=== PATIENT | male | born 1955 | race Caucasian/White ===

== ENCOUNTER 2016-04-27 06:44 | Day surgery (SDC) | payer BC ==
--- NOTE | ~2016-04-27 | EGD ---
EGD REPORT [facility] [address] [id number] NAME: SHAWN JEFFERSON : [birth year] STATUS : REG [facility]#: [id number] AGE: 61 ADM/REG DATE : 04/27/16 MR#: [id number] REPORT SERV DATE: 04/27/16 DICTATED BY: MIGUEL ÁNGEL LEOS DATE: 04/27/16 REPORT STATUS : Draft TRANSCRIBED BY: [facility] DATE: 04/27/16 Endoscopy Center Patient Name: Shawn Jefferson Date of : 1955 Attending MD: MIGUEL ÁNGEL LEOS MD Procedure Date No Time: 04/27/2016 Procedure: Colonoscopy Indications: Screening for colorectal malignant neoplasm Referring MD: JENNIFER GARCIA JR. Medicines: Propofol per Anesthesia Complications: No immediate complications. Procedure: Pre-Anesthesia Assessment: - ASA Grade Assessment: II - A patient with mild systemic disease. After I obtained informed consent, the scope was passed under direct vision. Throughout the procedure, the patient's blood pressure, pulse, and oxygen saturations were monitored continuously. The CF [id number] was introduced through the anus and advanced to the cecum, identified by appendiceal orifice and ileocecal valve. The colonoscopy was performed without difficulty. The patient tolerated the procedure well. The quality of the bowel preparation was good. Findings: The perianal and digital rectal examinations were normal. Many medium-mouthed diverticula were found in the recto-sigmoid colon and in the sigmoid colon. Internal hemorrhoids were found during retroflexion and were Grade I (internal hemorrhoids that do not prolapse). The rest of the colon was normal. Impression: - Diverticulosis in the recto-sigmoid colon and in the sigmoid colon. - Internal hemorrhoids. Recommendation: - Discharge patient to home (ambulatory). - Repeat colonoscopy in 5 years for surveillance. Procedure Code(s): --- Professional --- G0121, Colorectal cancer screening; colonoscopy on individual not meeting criteria for high risk Diagnosis Code(s): --- Professional --- K64.0, First degree hemorrhoids EGD REPORT [address] [address] NAME: SHAWN JEFFERSON : [birth year] STATUS : REG [facility]#: [id number] AGE: 61 ADM/REG DATE : 04/27/16 MR#: [id number] REPORT SERV DATE: 04/27/16 DICTATED BY: MIGUEL ÁNGEL LEOS. DATE: 04/27/16 REPORT STATUS : Draft TRANSCRIBED BY: [employer] DATE: 04/27/16 K57.30, Diverticulosis of large intestine without perforation or abscess without bleeding Z12.11, Encounter for screening for malignant neoplasm of colon CPT copyright 2013 [employer]. All rights reserved. The codes documented in this report are preliminary and upon station inspector review may be revised to meet current compliance requirements. Miguel Ángel Leos MD MIGUEL ÁNGEL LEOS MD 04/27/2016 8:55 AM This report has been signed electronically. Number of Addenda: 0 Note Initiated On: 04/27/2016 8:25 AM Scope Withdrawal Time 0 hours 9 minutes 37 seconds [address] [place] [address]
--- NOTE | ~2016-04-27 | EGD ---
EGD REPORT [facility] [address] [id number] NAME: SHAWN JEFFERSON : [birth year] STATUS : REG [facility]#: [id number] AGE: 61 ADM/REG DATE : 04/27/16 MR#: [id number] REPORT SERV DATE: 04/27/16 DICTATED BY: MIGUEL ÁNGEL LEOS DATE: 04/27/16 REPORT STATUS : Draft [facility]ANS[facility]IBED [facility]: [facility] DATE: 04/27/16 Endoscopy Center Patient Name: Shawn Jefferson Date of : 1955 Attending MD: MIGUEL ÁNGEL LEOS MD Procedure Date No Time: 04/27/2016 Procedure: Colonoscopy Indications: Screening for colorectal malignant neoplasm Referring MD: JENNIFER GARCIA JR. Medicines: Propofol per Anesthesia Complications: No immediate complications. Procedure: Pre-Anesthesia Assessment: - ASA Grade Assessment: II - A patient with mild systemic disease. After I obtained informed consent, the scope was passed under direct vision. Throughout the procedure, the patient's blood pressure, pulse, and oxygen saturations were monitored continuously. The CF [id number] was introduced through the anus and advanced to the cecum, identified by appendiceal orifice and ileocecal valve. The colonoscopy was performed without difficulty. The patient tolerated the procedure well. The quality of the bowel preparation was good. Findings: The perianal and digital rectal examinations were normal. Many medium-mouthed diverticula were found in the recto-sigmoid colon and in the sigmoid colon. Internal hemorrhoids were found during retroflexion and were Grade I (internal hemorrhoids that do not prolapse). The rest of the colon was normal. Impression: - Diverticulosis in the recto-sigmoid colon and in the sigmoid colon. - Internal hemorrhoids. Recommendation: - Discharge patient to home (ambulatory). - Repeat colonoscopy in 5 years for surveillance. Procedure Code(s): --- Professional --- G0121, Colorectal cancer screening; colonoscopy on individual not meeting criteria for high risk Diagnosis Code(s): --- Professional --- K64.0, First degree hemorrhoids EGD REPORT [address] [address] NAME: SHAWN JEFFERSON : [birth year] STATUS : REG [facility]#: [id number] AGE: 61 ADM/REG DATE : 04/27/16 MR#: [id number] REPORT SERV DATE: 04/27/16 DICTATED BY: MIGUEL ÁNGEL LEOS. DATE: 04/27/16 REPORT STATUS : Draft TRANSCRIBED BY: [employer] DATE: 04/27/16 K57.30, Diverticulosis of large intestine without perforation or abscess without bleeding Z12.11, Encounter for screening for malignant neoplasm of colon CPT copyright 2013 [employer]. All rights reserved. The codes documented in this report are preliminary and upon content editor review may be revised to meet current compliance requirements. Miguel Ángel Leos MD MIGUEL ÁNGEL LEOS MD 04/27/2016 8:55 AM This report has been signed electronically. Number of Addenda: 0 Note Initiated On: 04/27/2016 8:25 AM Scope Withdrawal Time 0 hours 9 minutes 37 seconds [address] [place] [address]
== END 2016-04-27 23:59 | disposition home or self-care (01) ==
LOC: DMU 06:44
PROVIDERS: Internal Medicine Gastroenterology
PROC: 0DJD8ZZ Inspection of Lower Intestinal Tract, Via Natural or Artificial Opening Endoscopic (ICD-10-PCS; principal; 2016-04-27 08:00)
DX: Z12.11 Encounter for screening for malignant neoplasm of colon (principal); D12.3 Benign neoplasm of transverse colon; K57.30 Diverticulosis of large intestine without perforation or abscess without bleeding; K64.8 Other hemorrhoids; Z86.010 Personal history of colon polyps; Z88.2 Allergy status to sulfonamides
CPT/HCPCS: 88305